=== PATIENT | male | born 1995 | race Caucasian/White ===

== ENCOUNTER 2022-03-14 15:45 | Inpatient (IN) | payer MEDICAID ==
[~2022-03-14] VITALS: Ht 167.6 cm; Wt 81.7 kg
[2022-03-14] MEDS ORDERED: TETANUS, DIPHTHERIA, PERTUSSIS VAC/PF 0.5ML (>10YR OLD) IM ONE (17:00)
[2022-03-14] MEDS ORDERED: ONDANSETRON HCL 4MG/2ML INJ IV NR (17:00)
[2022-03-14] MEDS ORDERED: MORPHINE SULFATE 4 MG/ML CPJ (NOT FOR IM USE) IV NR (17:00)
[2022-03-14 17:14] LABS: BASOPHILS % 0.6 % (0.0-2.0); EOSINOPHILS % 2.2 % (0.0-5.0); HEMATOCRIT. 40.9 % (42.0-52.0); HEMOGLOBIN. 14.1 g/dL (14.0-18.0); LYMPHOCYTES % 15.3 % (20.0-50.0); MEAN CORPUSCULAR HEMOGLOBIN 31.7 pg (28.0-32.0); MEAN CORPUSCULAR VOLUME 91.8 fL (80.0-94.0); MEAN PLATELET VOLUME 9.1 fl (7.4-10.4); MONOCYTES % 7.6 % (2.0-8.0); NEUTROPHILS % 74.3 % (40.0-76.0); PLATELET 261 x1000/uL (130-400); RED BLOOD CELL COUNT 4.45 mill/uL (4.7-6.1); RED CELL DISTRIBUTION WIDTH 13.4 % (11.6-14.6)
[2022-03-14 17:20] LABS: CHLORIDE 105 mEq/L (98-107)
[2022-03-14] MEDS ORDERED: LEVETIRACETAM 500MG PREMIX 100 ML IV NR (17:45)
[2022-03-14] MEDS ORDERED: ACETAMINOPHEN 325MG TABLET PO ONE (19:00)
[2022-03-14] MEDS ORDERED: METOCLOPRAMIDE HCL 10MG/2ML VIAL IV ONE (19:00)
[2022-03-14] MEDS ORDERED: NICARDIPINE 100 MG in SODIUM CHLORIDE 0.9% 60 ML IV PRN (21:30)
[2022-03-14] MEDS ORDERED: NALOXONE HCL 0.4MG/ML VIAL IV PRN (21:30)
[2022-03-14 22:40] VITALS: BP 123/70
[2022-03-14] MEDS ORDERED: HYDROCODONE/ACETAMINOPHEN 5/325MG TABLET PO PRN (22:45)
[2022-03-14] MEDS ORDERED: ACETAMINOPHEN 325MG TABLET PO PRN (22:45)
[2022-03-14 23:00] VITALS: BP 127/80
[2022-03-14] MEDS: MORPHINE SULFATE 2 MG/ML CPJ (NOT FOR IM USE) IV PRN (23:10)
[2022-03-14 23:30] VITALS: BP 132/71
[2022-03-15] VITALS (49 sets, daily range): BP systolic 114–148; BP diastolic 45–95
[2022-03-15 05:52] LABS: CHLORIDE 106 mEq/L (98-107)
[2022-03-15 05:54] LABS: BASOPHILS % 0.7 % (0.0-2.0); EOSINOPHILS % 5.2 % (0.0-5.0); HEMATOCRIT. 40.5 % (42.0-52.0); HEMOGLOBIN. 13.7 g/dL (14.0-18.0); LYMPHOCYTES % 19.6 % (20.0-50.0); MEAN CORPUSCULAR HEMOGLOBIN 31.4 pg (28.0-32.0); MEAN CORPUSCULAR VOLUME 92.8 fL (80.0-94.0); MEAN PLATELET VOLUME 9.8 fl (7.4-10.4); MONOCYTES % 8.3 % (2.0-8.0); NEUTROPHILS % 66.2 % (40.0-76.0); PLATELET 258 x1000/uL (130-400); RED BLOOD CELL COUNT 4.36 mill/uL (4.7-6.1); RED CELL DISTRIBUTION WIDTH 13.5 % (11.6-14.6)
[2022-03-15 06:07] LABS: PHOSPHORUS 2.6 mg/dL (2.5-4.9)
[2022-03-15] MEDS: MORPHINE SULFATE 2 MG/ML CPJ (NOT FOR IM USE) IV PRN ×3 (08:30→21:40)
[2022-03-15] MEDS ORDERED: LEVETIRACETAM 500MG PREMIX 100 ML IV SCH (09:00)
[2022-03-15] MEDS: LEVETIRACETAM 500MG PREMIX 100 ML IV SCH ×2 (10:33→21:23)
[2022-03-15 11:16] LABS: PROTHROMBIN TIME 10.5 sec (9.6-11.0)
[2022-03-15] MEDS ORDERED: ONDANSETRON HCL 4MG/2ML INJ IV PRN (21:30)
[2022-03-16] VITALS (16 sets, daily range): BP systolic 94–164; BP diastolic 32–92
[2022-03-16 05:49] LABS: BASOPHILS % 0.7 % (0.0-2.0); EOSINOPHILS % 5.6 % (0.0-5.0); HEMATOCRIT. 41.9 % (42.0-52.0); HEMOGLOBIN. 14.2 g/dL (14.0-18.0); LYMPHOCYTES % 24.6 % (20.0-50.0); MEAN CORPUSCULAR HEMOGLOBIN 31.3 pg (28.0-32.0); MEAN PLATELET VOLUME 9.6 fl (7.4-10.4); MONOCYTES % 8.6 % (2.0-8.0); NEUTROPHILS % 60.5 % (40.0-76.0); PLATELET 296 x1000/uL (130-400); RED BLOOD CELL COUNT 4.56 mill/uL (4.7-6.1); RED CELL DISTRIBUTION WIDTH 13.6 % (11.6-14.6)
[2022-03-16 06:08] LABS: CHLORIDE 104 mEq/L (98-107)
[2022-03-16] MEDS ORDERED: NICOTINE 14MG PATCH TD SCH (09:00)
[2022-03-16] MEDS ORDERED: IBUP-2028 MT (20:42)
[2022-03-16] MEDS ORDERED: TOPUD PO (20:42)
[2022-03-16] MEDS ORDERED: MORP15TA67 MT (20:44)
[2022-03-16] MEDS ORDERED: KEPP500 MT (20:44)
[2022-03-17] MEDS ORDERED: KEPP500 MT (13:04)
[2022-03-17] MEDS ORDERED: MORP15TA67 MT (13:04)
[2022-03-17] MEDS ORDERED: TOPUD PO (13:04)
== END 2022-03-16 08:45 | disposition left against medical advice (07) | DRG 55 ==
LOC: ER 15:45 → MICUNO 17:45 → ENRESERV 21:51
PROVIDERS: ADMIT Internal Medicine Nephrology; ATTEND Internal Medicine Nephrology
DX: S06.5X0A Traumatic subdural hemorrhage without loss of consciousness, initial encounter (principal); H92.12 Otorrhea, left ear; Y93.89 Activity, other specified; Y92.89 Other specified places as the place of occurrence of the external cause; Y99.8 Other external cause status; Y08.89XA Assault by other specified means, initial encounter; V03.10XA Pedestrian on foot injured in collision with car, pick-up truck or van in traffic accident, initial encounter
CPT/HCPCS: 36415; 70486; 80048; 80053; 83735; 84100; 84484; 85025; 86850; 86900; 90715; 93005; 99291; J1953; J2270; J2405; J2765

== ENCOUNTER 2022-03-16 17:50 | Emergency (ER) | payer MEDICAID ==
[~2022-03-16] VITALS: Ht 170.2 cm; Wt 91.0 kg
[2022-03-16 18:57] VITALS: BP 140/70
[2022-03-16] MEDS ORDERED: ACETAMINOPHEN 325MG TABLET PO ONE (20:15)
[2022-03-16] MEDS ORDERED: IBUPROFEN 400MG TABLET PO ONE (20:15)
[2022-03-16] MEDS ORDERED: LEVETIRACETAM 500MG/5ML CUP PO ONE (20:15)
[2022-03-16] MEDS ORDERED: TOPUD PO (20:42)
[2022-03-16] MEDS ORDERED: IBUP-2028 MT (20:42)
[2022-03-16] MEDS ORDERED: MORP15TA67 MT (20:44)
[2022-03-16] MEDS ORDERED: KEPP500 MT (20:44)
[2022-03-17] MEDS ORDERED: MORP15TA67 MT (13:04)
[2022-03-17] MEDS ORDERED: KEPP500 MT (13:04)
[2022-03-17] MEDS ORDERED: TOPUD PO (13:04)
== END 2022-03-16 20:55 | disposition home or self-care (01) ==
LOC: ER 17:50
DX: R51.9 Headache, unspecified (principal); I62.00 Nontraumatic subdural hemorrhage, unspecified; Z87.891 Personal history of nicotine dependence
CPT/HCPCS: 99284